=== PATIENT | female | born 1955 | race Caucasian/White ===

== ENCOUNTER 2017-09-01 16:44 | Emergency (ER) | payer OTHER ==
[2017-09-01 16:52] VITALS: BP 100/62; PULSE 73; RESP 19; TEMP 97.7; O2SAT 95
--- NOTE | 2017-09-01 16:58 | EDPHY ---
H & P Stated Complaint: L LOWER LEG PAIN/SWELLING/AIRFLIGHT 08/13 Time Seen by Provider: 09/01/17 16:58 HPI/ROS: HPI: This is a 62-year-old female presents with Chief Complaint: Left calf and ankle swelling Location: Left calf and ankle Quality: Swelling Duration: 1 week Signs and Symptoms: No bleeding, no radiation, no numbness, no weakness, no tingling, no incontinence, no decreased range of motion, + swelling, + pain, no shortness of breath, no chest pains, no palpitation Timing: Gradual onset, gradually worsening Severity: [id number] Context: Patient reports that she has a history of breast cancer, status post mastectomy, currently in the process of coming off tamoxifen when on a 4 hour plane ride approximately 3 weeks ago and presents with one-week history of gradual onset and gradual worsening of left ankle swelling initially and now left calf swelling and pain. She reports that 3 weeks ago she [place] and noted that her ankle was sore but continue to run. She has a history of a prior left lateral ankle sprain in the remote past but has not bothered her in some time. Pain in her calf worsens with plantar flexion. There is no pain at rest. Patient went to the chiropractor today to have her ankle adjusted and he advised that she go to the emergency room. She is a Pilates and didactic instructor and last leak while she was on her knees and plantar flexion of her foot ankle she felt a pop in the posterior portion of her knee and mild pain that quickly resolved. She denies any chest pain/skin color changes/shortness of breath/palpitations/paresthesias. She has no pain with ambulation. Modifying Factors: None Comment: ROS: see HPI Constitutional: No fever, no chills, no weight loss Eyes: No blurred vision Respiratory: No shortness of breath, no cough Cardiovascular: No chest pain Gastrointestinal: No nausea, no vomiting no diarrhea Genitourinary: No dysuria Extremities: No myalgias Neurologic: No weakness, no numbness Skin: No rashes Hematologic: No bruising, no bleeding MEDICAL/SURGICAL/SOCIAL HISTORY: Medical/SURGICAL history: BREAST CANCER/L HIP REPLACEMENT/L KNEE SURG Social history: CONSTITUTIONAL: awake and alert, no obvious distress HEENT: Atraumatic and normocephalic, PERRL, EOMI. Tympanic membranes clear. Oropharynx clear, no exudate and moist pink mucosa. Airway patent. No lymphadenopathy. No meningismus. Cardiovascular: Normal S1/S2, regular rate, regular rhythm, without murmur rub or gallop. PULMONARY/CHEST: Symmetrical and nontender. Clear to auscultation bilaterally. Good air movement. No accessory muscle usage. ABDOMEN: Soft, nondistended, nontender, no rebound, no guarding, no peritoneal signs, no masses or organomegaly. No CVAT. EXTREMITIES: 2/2 pedal pulses, strength 5/5, left calf is twice the size of the right calf; no palpable cords; positive tenderness with palpation of the left calf. Left foot and toes are warm to touch. LEFT Ankle; Plantar flexion to 50, dorsiflexion to 20. Foot inversion to 35 degree. No tenderness Anterior talofibular ligament. No tenderness Calcaneofibular ligament, no tenderness posterior talofibular ligament, no tenderness posterior inferior tibiofibular ligament. Achilles tendon intact. no deformities, no clubbing, no cyanosis or edema. NEUROLOGICAL: no focal neuro deficits. GCS 15. SKIN: Warm and dry, no erythema. no rash. Good capillary refill. Source: Patient Exam Limitations: No limitations - Personal History Current Tetanus/Diphtheria Vaccine: Yes - Medical/Surgical History Hx Asthma: No Hx Chronic Respiratory Disease: No Hx Diabetes: No Hx Cardiac Disease: No Hx Renal Disease: No Hx Cirrhosis: No Hx Alcoholism: No Hx HIV/AIDS: No Hx Splenectomy or Spleen Trauma: No Other PMH: BREAST CANCER/L HIP REPLACEMENT/L KNEE SURG - Social History Smoking Status: Former smoker Constitutional: Initial Vital Signs Temperature (C) 36.5 C 09/01/17 16:48 Heart Rate 73 09/01/17 16:48 Respiratory Rate 19 09/01/17 16:48 Blood Pressure 100/62 09/01/17 16:48 O2 Sat (%) 95 09/01/17 16:48 O2 Delivery Mode Room Air Allergies/Adverse Reactions: No Known Allergies Allergy (Verified 09/01/17 16:48) Home Medications: Medication Instructions Recorded Levothyroxine 09/01/17 Tamoxifen Citrate 09/01/17 Medical Decision Making ED Course/Re-evaluation: Left lower extremity ultrasound order No signs of neurovascular compromise/tenting of skin/compartment syndrome/ extremities and joints examined above and below area of concern and are neurovascularly intact. 1805: Called by radiologist who advised no signs of deep venous thrombosis; there is mild swelling noted from the knee to the left calf that could represent a ruptured Cha cyst or hematoma. Differential Diagnosis: Leg swelling including but not limited to hypoalbuminemia, congestive heart failure, cor pulmonale, chronic venous stasis and DVT. Departure - Departure Disposition: Home, Routine, Self-Care Clinical Impression: Cha's cyst, ruptured Condition: Good Instructions: Bakers Cyst (ED) Additional Instructions: Ultrasound today showed that you do not have a blood clot in your left leg. Rest and elevate the left lower extremity over the next few days. Take ibuprofen 600 mg every 6-8 hours with food as needed for pain and inflammation. Apply ice for 30 minutes at a time; 2-3 times per day for the next 1-2 days. If at any time, you begin to experience pain in your knee, follow up with Orthopedics. Referrals: Evangelina Marks MD [Primary Care Provider] - As per Instructions Rai Wilkes MD [Medical Doctor] - As per Instructions
== END 2017-09-01 18:27 | disposition home or self-care (01) ==
DX: M66.0 Rupture of popliteal cyst (principal); Z85.3 Personal history of malignant neoplasm of breast; Z87.891 Personal history of nicotine dependence